=== PATIENT | female | born 1955 | race Caucasian/White ===

== ENCOUNTER 2025-09-11 13:10 | Outpatient (CLI) | payer BC, MEDICARE | END 2025-09-11 13:11 | disposition home or self-care (01) | LOC: CSHMAMMO 13:10 | PROVIDERS: ATTEND Internal Medicine | DX: Z12.31 Encounter for screening mammogram for malignant neoplasm of breast (principal); Z80.3 Family history of malignant neoplasm of breast; Z85.3 Personal history of malignant neoplasm of breast; N63.15 Unspecified lump in the right breast, overlapping quadrants | CPT/HCPCS: 77063; 77067 ==